=== PATIENT | female | born 1935 | race Caucasian/White ===

== ENCOUNTER 2016-05-31 13:56 | Emergency (ER) | payer OTHER | END 2016-05-31 17:40 | disposition home or self-care (01) | LOC: ER1 13:56 | DX: S16.1XXA Strain of muscle, fascia and tendon at neck level, initial encounter (principal); I10 Essential (primary) hypertension; E07.9 Disorder of thyroid, unspecified; Z88.5 Allergy status to narcotic agent; V46.6XXA Car passenger injured in collision with other nonmotor vehicle in traffic accident, initial encounter; Z87.891 Personal history of nicotine dependence; Y92.410 Unspecified street and highway as the place of occurrence of the external cause; Z79.01 Long term (current) use of anticoagulants; Z79.899 Other long term (current) drug therapy | CPT/HCPCS: 72100; 72125; 73502; 99284 ==

== ENCOUNTER 2020-08-08 20:41 | Emergency (ER) | payer OTHER ==
[~2020-08-08 20:41] MED LIST: 8 HOUR PAIN RE650 MG PO; AMIODARONE HCL200 MG PO; ASPIRIN EC81 MG PO; BACTROBAN NASAL1 G1 TOP; BENADRYL 25MG C25 MG PO; BUSPAR 10MG10 MG PO; CLOPIDOGREL75 MG PO; COZAAR100 MG PO; COZAAR25 MG PO; DILTIAZEM 24HR120 M1 PO; ELIQUIS 5 MG TAB5 MG PO; ENTRESTO 49 MG1 EACH PO; FAMOTIDINE20 MG PO; KEFLEX CAP 500500 MG PO; LASIX TAB 20 MG20 MG PO; MECLIZINE HCL25 M1 PO; NITROSTAT0.4 MG SL; NORVASC2.5 MG PO; PRAVACHOL80 MG PO; PRAVASTATIN SOD80 MG PO; SYNTHROID88 MCG PO; TOPROL XL25 MG PO; VITAMIN D31000 UNI1 PO; ZANTAC150 MG PO; ZOFRAN4 MG PO
[2020-08-08 22:03] LABS: HEMOGLOBIN 13.7 gm/dl (12.3-15.3); RED BLOOD COUNT 4.69 M/UL (4.00-5.10); WHITE BLOOD COUNT 5.9 K/UL (4.5-11.0)
[2020-08-08 22:30] LABS: BUN/CREATININE RATIO 24 (0-10)
[2020-08-09] MEDS ORDERED: OMNICEF 300 MG300 MG PO (18:35)
== END 2020-08-09 01:50 | disposition home or self-care (01) ==
LOC: ER1 20:41
PROVIDERS: Emergency Medicine
DX: S50.01XA Contusion of right elbow, initial encounter (principal); N30.90 Cystitis, unspecified without hematuria; W19.XXXA Unspecified fall, initial encounter
CPT/HCPCS: 70450; 71045; 73080; 73502; 73552; 80053; 81001; 82550; 82553; 83874; 83880; 84484; 85025; 87086; 93005; 99284

== ENCOUNTER 2021-05-31 15:50 | Inpatient (IN) | payer OTHER ==
[~2021-05-31] VITALS: Ht 157.5 cm; Wt 81.6 kg
[~2021-05-31 15:50] MED LIST changes: -ELIQUIS 5 MG TAB5 MG PO; +OMNICEF 300 MG300 MG PO
[2021-05-31 16:44] LABS: HEMOGLOBIN 14.2 gm/dl (12.3-15.3); RED BLOOD COUNT 4.73 M/UL (4.00-5.10); WHITE BLOOD COUNT 6.4 K/UL (4.5-11.0)
[2021-05-31] MEDS ORDERED: DIGOX125 MCG PO (21:58)
[2021-06-01 02:12] LABS: HEMOGLOBIN 13.1 gm/dl (12.3-15.3); RED BLOOD COUNT 4.37 M/UL (4.00-5.10)
[2021-06-01] MEDS ORDERED: MECLIZINE HCL25 MG PO (08:26)
[2021-06-01] MEDS ORDERED: NITROSTAT 0.40.4 MG SL (08:26)
[2021-06-01] MEDS ORDERED: ECOTRIN81 MG PO (08:27)
[2021-06-01] MEDS ORDERED: LEVOTHYROXINE100 MCG PO (08:27)
--- NOTE | 2021-06-01 09:55 | NUR ---
Patient has pauses in heart beat, MD made aware. No new orders at this time.
[2021-06-01] MEDS ORDERED: TOPROL XL50 MG PO (16:21)
[2021-06-01] MEDS ORDERED: ELIQUIS 5 MG TAB5 MG PO (23:42)
[2021-06-02 16:16] LABS: HEMOGLOBIN 14.2 gm/dl (12.3-15.3); RED BLOOD COUNT 4.65 M/UL (4.00-5.10); WHITE BLOOD COUNT 6.5 K/UL (4.5-11.0)
[2021-06-03 03:15] LABS: RED BLOOD COUNT 4.58 M/UL (4.00-5.10); WHITE BLOOD COUNT 5.8 K/UL (4.5-11.0)
[2021-06-04 05:46] LABS: HEMOGLOBIN 15.4 gm/dl (12.3-15.3)
[2021-06-04 05:48] LABS: RED BLOOD COUNT 5.11 M/UL (4.00-5.10); WHITE BLOOD COUNT 7.5 K/UL (4.5-11.0)
--- NOTE | 2021-06-04 11:15 | NUR ---
NOTIFIED THAT EVENT MONITOR WAS PLACED.
[2021-06-04] MEDS ORDERED: LOPRESSOR 25 MG25 MG PO (12:34)
[2021-06-04] MEDS ORDERED: LEVOTHYROXINE125 MCG PO (12:34)
[2021-06-04] MEDS ORDERED: HYDROXYZINE PAM25 MG PO (12:34)
[2021-06-04] MEDS ORDERED: HYDRALAZINE HCL25 MG PO (13:12)
== END 2021-06-04 13:59 | disposition home or self-care (01) | DRG 69 ==
LOC: ER1 15:50 → MED SURG 4 20:34
PROVIDERS: Physician Assistant; ADMIT Internal Medicine
DX: G45.9 Transient cerebral ischemic attack, unspecified (principal); I48.20 Chronic atrial fibrillation, unspecified; I50.22 Chronic systolic (congestive) heart failure; E87.3 Alkalosis; I13.0 Hypertensive heart and chronic kidney disease with heart failure and stage 1 through stage 4 chronic kidney disease, or unspecified chronic kidney disease; N39.0 Urinary tract infection, site not specified; I16.0 Hypertensive urgency; I35.0 Nonrheumatic aortic (valve) stenosis; E87.6 Hypokalemia; K21.9 Gastro-esophageal reflux disease without esophagitis; F17.200 Nicotine dependence, unspecified, uncomplicated; E78.5 Hyperlipidemia, unspecified; F41.9 Anxiety disorder, unspecified; G62.9 Polyneuropathy, unspecified; R20.0 Anesthesia of skin; R00.1 Bradycardia, unspecified; R82.71 Bacteriuria; I25.10 Atherosclerotic heart disease of native coronary artery without angina pectoris; N18.30 Chronic kidney disease, stage 3 unspecified; E03.8 Other specified hypothyroidism; G40.909 Epilepsy, unspecified, not intractable, without status epilepticus; Z79.82 Long term (current) use of aspirin; Z79.899 Other long term (current) drug therapy; Z79.01 Long term (current) use of anticoagulants; Z95.5 Presence of coronary angioplasty implant and graft; Z95.4 Presence of other heart-valve replacement; Z90.89 Acquired absence of other organs; Z88.0 Allergy status to penicillin; Z88.5 Allergy status to narcotic agent; Z82.49 Family history of ischemic heart disease and other diseases of the circulatory system; Z98.890 Other specified postprocedural states; Z81.8 Family history of other mental and behavioral disorders
CPT/HCPCS: 36415; 70450; 70551; 71045; 80048; 80053; 81001; 82550; 82553; 83735; 83880; 84439; 84443; 84484; 85025; 85027; 87086; 92610; 93005; 93270; 93880; 96374; 96375; 97161; 97165; 99285; A6212; G0378; J0696; Q0177

== ENCOUNTER → 2021-06-15 | Outpatient (CLI) | payer OTHER ==
[~2021-06-15] MED LIST changes: +DIGOX125 MCG PO; +ECOTRIN81 MG PO; +ELIQUIS 5 MG TAB5 MG PO; +HYDRALAZINE HCL25 MG PO; +HYDROXYZINE PAM25 MG PO; +LEVOTHYROXINE100 MCG PO; +LEVOTHYROXINE125 MCG PO; +LOPRESSOR 25 MG25 MG PO; +MECLIZINE HCL25 MG PO; +NITROSTAT 0.40.4 MG SL; +TOPROL XL50 MG PO
== END ==
LOC: LAB 10:26
PROVIDERS: Internal Medicine
DX: I48.91 Unspecified atrial fibrillation (principal); E87.6 Hypokalemia
CPT/HCPCS: 36415; 80048

== ENCOUNTER 2021-06-17 13:48 | Emergency (ER) | payer OTHER ==
[2021-06-17 14:37] LABS: HEMOGLOBIN 14.3 gm/dl (12.3-15.3); RED BLOOD COUNT 4.73 M/UL (4.00-5.10); WHITE BLOOD COUNT 5.3 K/UL (4.5-11.0)
== END 2021-06-17 17:48 | disposition home or self-care (01) ==
LOC: ER1 13:48
PROVIDERS: Preventive Medicine Occupational Medicine
DX: R07.89 Other chest pain (principal); I11.9 Hypertensive heart disease without heart failure; Z88.5 Allergy status to narcotic agent
CPT/HCPCS: 71045; 80053; 82550; 82553; 84484; 85025; 93005; 99285

== ENCOUNTER → 2021-07-05 | Outpatient (CLI) | payer OTHER | LOC: LAB 14:32 | DX: E03.9 Hypothyroidism, unspecified (principal) | CPT/HCPCS: 36415; 84439; 84443 ==

== ENCOUNTER → 2021-07-15 | Outpatient (CLI) | payer OTHER | LOC: HEART 5 08:12 | DX: R07.9 Chest pain, unspecified (principal) | CPT/HCPCS: 78452; A9502; J2785 ==

== ENCOUNTER 2021-11-17 09:51 | Observation (INO) | payer OTHER ==
[~2021-11-17] VITALS: Ht 160 cm; Wt 72.6 kg
[2021-11-17 11:50] LABS: HEMOGLOBIN 14.7 gm/dl (12.3-15.3); RED BLOOD COUNT 4.96 M/UL (4.00-5.10); WHITE BLOOD COUNT 4.9 K/UL (4.5-11.0)
[2021-11-17 12:13] LABS: BUN/CREATININE RATIO 27 (0-10)
[2021-11-17] MEDS ORDERED: DIGOXIN125 MCG PO (18:33)
[2021-11-17] MEDS ORDERED: METOPROLOL TART25 MG PO (18:34)
[2021-11-17] MEDS ORDERED: MELATONIN3 MG PO (18:36)
[2021-11-18 04:46] LABS: HEMOGLOBIN 14.4 gm/dl (12.3-15.3); RED BLOOD COUNT 4.88 M/UL (4.00-5.10); WHITE BLOOD COUNT 5.2 K/UL (4.5-11.0)
[2021-11-18 04:59] LABS: BUN/CREATININE RATIO 29 (0-10)
== END 2021-11-18 12:30 | disposition home or self-care (01) ==
LOC: ER1 09:51 → M/S 14:13 → CDU 14:13 → M/S 16:00
PROVIDERS: Emergency Medicine; Physician Assistant; ADMIT Internal Medicine Infectious Disease
DX: R20.2 Paresthesia of skin (principal); I48.20 Chronic atrial fibrillation, unspecified; I16.0 Hypertensive urgency; I25.10 Atherosclerotic heart disease of native coronary artery without angina pectoris; I11.0 Hypertensive heart disease with heart failure; I50.22 Chronic systolic (congestive) heart failure; E78.5 Hyperlipidemia, unspecified; K21.9 Gastro-esophageal reflux disease without esophagitis; F03.90 Unspecified dementia, unspecified severity, without behavioral disturbance, psychotic disturbance, mood disturbance, and anxiety; F17.210 Nicotine dependence, cigarettes, uncomplicated; E11.9 Type 2 diabetes mellitus without complications; E03.9 Hypothyroidism, unspecified; Z87.891 Personal history of nicotine dependence; Z79.01 Long term (current) use of anticoagulants; Z79.82 Long term (current) use of aspirin; Z79.899 Other long term (current) drug therapy; Z88.0 Allergy status to penicillin; Z88.5 Allergy status to narcotic agent; Z88.8 Allergy status to other drugs, medicaments and biological substances
CPT/HCPCS: 36415; 70450; 70551; 71045; 80048; 80053; 82550; 82553; 82607; 83735; 84484; 85025; 93005; 96374; 97161; 97166; 99285; G0378; J0360